=== PATIENT | female | born 1945 | race Caucasian/White ===

== ENCOUNTER → 2018-03-28 | Day surgery (SDC) | payer MEDICARE, BC ==
[2018-03-24 11:33] LABS: BASOPHILS # (AUTO) 0.1 (0.0-0.1); EOSINOPHILS # (AUTO) 0.2 (0.0-0.4); EOSINOPHILS % 3.3 % (0.0-6.0); HEMATOCRIT 45.5 % (34.2-44.1); HEMOGLOBIN 14.7 g/dL (12.0-16.0); LYMPHOCYTES # (AUTO) 1.1 (1.0-3.2); LYMPHOCYTES % 16.5 % (18.0-39.1); MEAN CORPUSCULAR HEMOGLOBIN 29.1 pg (28-32); MEAN CORPUSCULAR HGB CONC 32.3 g/dL (31-35); MEAN CORPUSCULAR VOLUME 90.1 fL (81-99); MONOCYTES # (AUTO) 0.7 (0.2-0.8); MONOCYTES % 9.4 % (4.4-11.3); NEUTROPHILS # (AUTO) 4.8 (2.1-6.9); NEUTROPHILS % 69.5 % (38.7-80.0); PLATELET COUNT 269 x10e3/uL (140-360); RED BLOOD COUNT 5.05 x10e6/uL (3.6-5.1); RED CELL DISTRIBUTION WIDTH 12.5 % (11.7-14.4)
[~2018-03-28] MED LIST: BENEFIBER1 EAC1 PO; FENOFIBRATE PO; FENTANYL CITRATE/PF 100MCG/2 ML INJ ONE; HYOSCYAMINE SULFATE 0.5 MG/ML INJ ONE; LEVEMIR100 UNIT/1 SQ; LIDOCAINE HCL 2% LOCAL INJ 5 ML SDV VIAL INJ ONE; MIDAZOLAM HCL 2 MG/2 ML VIAL ONE; PANTOPRAZOLE SO40 MG PO; PRESERVISION A1 EACH PO; PROPOFOL IV EMULSION 10 MG/ML 50 ML VIAL ONE; Z.0.CARAFATE1 GM PO; Z.0.JANUMET XR 50-1; Z.0.METOPROLOL TART5 PO
[2018-03-28 09:45] VITALS: BP 137/77
--- NOTE | 2018-03-28 12:37 | Operative Report ---
DATE OF PROCEDURE: March 28, 2018 REFERRING PHYSICIAN: Dr. Flex Bolanos. PROCEDURES PERFORMED 1. Esophagogastroduodenoscopy with esophageal dilatation and biopsies. 2. Colonoscopy with polypectomy. INDICATIONS FOR EGD: Dysphagia to solids, upper abdominal pain. INDICATIONS FOR COLONOSCOPY: Surveillance colonoscopy, personal history of colon polyps, family history of colorectal neoplasm. MEDICATIONS: Patient was done under MAC. Please see anesthesiologist's note. PROCEDURE: With the patient in left lateral decubitus position, flexible fiberoptic Olympus gastroscope was introduced into the esophagus under direct visualization without any difficulty. There was some patchy erythema noted in distal esophagus. A minute tongue of velvety red mucosa was noted to extend proximally from the GE junction and biopsies were obtained to rule out Jack's. The esophagus was then dilated to size 52-Kinyarwanda Molina. The scope was then advanced with ease into the stomach traversing a small sliding hiatal hernia. Mucosa overlying the antrum and the body revealed some patchy erythema and qdoc-ht-ocollumm edema and biopsies were obtained, sent to stain for H. pylori. Pylorus appeared to be of normal contour and shape, was intubated with ease, and the scope was advanced all the way to the 2nd portion of the duodenum. The scope was then withdrawn slowly. Mucosa overlying the proximal and 2nd portion and duodenal bulb appeared to be within normal limits. The scope was then withdrawn back into the stomach and retroflexed, and mucosa overlying the fundus and the cardia appeared to be within normal limits. The scope was then straightened out and was subsequently withdrawn. Patient tolerated the procedure well. IMPRESSION 1. Distal esophagitis. 2. Rule out Jack's esophagus. 3. Esophagus dilated to size 52-Kinyarwanda Molina. 4. Small sliding hiatal hernia. 5. Gastritis, biopsied. Biopsies sent stain for Helicobacter pylori. PLAN: Follow up histology. Continue Protonix 40 mg 1 p.o. a.c. b.i.d. Patient was then turned around. After adequate lubrication of the anal canal, a flexible fiberoptic Olympus colonoscope was inserted into the rectum with ease and advanced all the way to the cecum. It was then withdrawn slowly. Mucosa overlying the cecum appeared to be within normal limits. One polyp was snared, 1 polyp was hot biopsied from the ascending colon. The transverse colon appeared to be within normal limits. Diverticular disease was noted to involve the distal descending of the sigmoid colon. One polyp was hot biopsied from the sigmoid colon, one polyp was hot biopsied from the rectum. The scope was then retroflexed into the distal rectum and small internal hemorrhoids were noted, none of which was actively bleeding. The scope was then straightened out and was subsequently withdrawn. Patient tolerated the procedure well. IMPRESSION 1. Ascending colon polyps x2, one snared and one hot biopsied. 2. Diverticulosis. 3. Sigmoid colon polyp, hot biopsied x1. 4. Rectal polyp, hot biopsied x1. 5. Internal hemorrhoids, none actively bleeding. PLAN: Follow up histology. Initiate high-fiber low-fat diet. Initiate high-fiber supplement. Patient might need a followup colonoscopy in 3 years. Job#: [id number] TYLER cc:DR. FLEX BOLANOS
== END | disposition home or self-care (01) ==
LOC: OR 05:47
PROVIDERS: ATTEND Internal Medicine Gastroenterology
DX: Z12.11 Encounter for screening for malignant neoplasm of colon (principal); Z80.0 Family history of malignant neoplasm of digestive organs; Z86.010 Personal history of colon polyps; R13.10 Dysphagia, unspecified; I25.10 Atherosclerotic heart disease of native coronary artery without angina pectoris; Z95.5 Presence of coronary angioplasty implant and graft; I25.2 Old myocardial infarction; I10 Essential (primary) hypertension; E11.9 Type 2 diabetes mellitus without complications; Z87.891 Personal history of nicotine dependence; K21.0 Gastro-esophageal reflux disease with esophagitis; K44.9 Diaphragmatic hernia without obstruction or gangrene; K29.70 Gastritis, unspecified, without bleeding; K57.30 Diverticulosis of large intestine without perforation or abscess without bleeding; K64.8 Other hemorrhoids; K63.5 Polyp of colon; K62.1 Rectal polyp; D12.2 Benign neoplasm of ascending colon; K52.831 Collagenous colitis; K31.9 Disease of stomach and duodenum, unspecified
CPT/HCPCS: 36415 ×2; 43239; 43249; 45384; 45385; 82948; 85025; 88305; 88312; 88313; J1980; J2001; J2250; 43450; 45378